=== PATIENT | male | born 1975 | race Caucasian/White ===

== ENCOUNTER 2016-07-07 04:36 | Emergency (ER) | payer MEDICAID ==
[2016-07-07 06:31] VITALS: BP 131/88
== END 2016-07-07 06:31 | disposition home or self-care (01) ==
LOC: ED 04:36
DX: S63.502A Unspecified sprain of left wrist, initial encounter (principal); S63.602A Unspecified sprain of left thumb, initial encounter; S41.112A Laceration without foreign body of left upper arm, initial encounter; V49.9XXA Car occupant (driver) (passenger) injured in unspecified traffic accident, initial encounter; Y93.89 Activity, other specified; Y99.8 Other external cause status; Y92.89 Other specified places as the place of occurrence of the external cause
CPT/HCPCS: 90715

== ENCOUNTER 2016-08-17 14:36 | Inpatient (IN) | payer MEDICAID ==
[~2016-08-17] VITALS: Ht 175.3 cm; Wt 131.6 kg
[2016-08-17 15:14] LABS: microscopic required? NO
[2016-08-17 15:23] LABS: PLATELET COUNT 282 x10^3mcL (130-400)
[2016-08-17 15:31] LABS: RED CELL DISTRIBUTION WIDTH 14.7 % (11.5-14.5)
[2016-08-17 15:35] LABS: urine erythrocyte NEGATIVE (NEGATIVE)
[2016-08-17 15:36] LABS: CARBON DIOXIDE 27.2 mmol/L (21-32); CHLORIDE SERUM 102 mmol/L (98-107); GFR1 > 60 mL/min; GLUCOSE SERUM 108 mg/dL (74-106); POTASSIUM SERUM 3.7 mmol/L (3.5-5.1); SODIUM SERUM 136 mmol/L (136-145)
[2016-08-17 15:46] LABS: ALKALINE PHOSPHATASE 89 U/L (46-116); ALT/SGPT 42 U/L (16-63); AST/SGOT 22 U/L (15-37); BILIRUBIN TOTAL 0.3 mg/dL (0.20-1.00); TOTAL PROTEIN, SERUM 7.6 g/dL (6.4-8.2)
[2016-08-17 15:50] LABS: ALBUMIN 3.3 g/dL (3.4-5.0)
[2016-08-17 16:02] LABS: BAND NEUTROPHIL 3 % (0-10); BASOPHIL 0 % (0-2); MONOCYTE 3 % (0-7); SEGMENTED NEUTROPHILS 88 % (37-75); rbc morphology (normal/abnorm) ABNORMAL (NORMAL)
[2016-08-17 16:13] LABS: CK-MB 0.5 ng/mL (0-3.6)
[2016-08-17] MEDS ORDERED: MULTI-VITAMINS1 TAB PO (17:35)
[2016-08-17] MEDS ORDERED: IBUPROFEN400 MG PO (17:36)
[2016-08-17 18:30] VITALS: BP 130/57
[2016-08-17 18:40] LABS: CHOLESTEROL/HDL RATIO 2.7; T3 TOTAL 0.96 ng/mL
[2016-08-17 18:47] LABS: FREE T4 0.81 ng/dL (0.76-1.46); T4(THYROXINE) 6.3 ug/dL (4.7-13.3)
[2016-08-17 21:26] VITALS: BP 120/67
[2016-08-18 00:43] VITALS: BP 120/67
[2016-08-18 05:25] VITALS: BP 110/50
[2016-08-18 06:21] LABS: CARBON DIOXIDE 25.3 mmol/L (21-32); CHLORIDE SERUM 111 mmol/L (98-107); CREATININE SERUM 0.7 mg/dL (0.7-1.3); GFR1 > 60 mL/min; GLUCOSE SERUM 107 mg/dL (74-106); MAGNESIUM 2.1 mg/dL (1.8-2.4); PHOSPHOROUS 3.4 mg/dL (2.5-4.9); SODIUM SERUM 146 mmol/L (136-145)
[2016-08-18 06:24] LABS: PLATELET COUNT 277 x10^3mcL (130-400)
[2016-08-18 07:49] LABS: RED CELL DISTRIBUTION WIDTH 14.8 % (11.5-14.5)
[2016-08-18 09:12] LABS: BAND NEUTROPHIL 5 % (0-10); BASOPHIL 0 % (0-2); MONOCYTE 2 % (0-7); SEGMENTED NEUTROPHILS 88 % (37-75)
[2016-08-18 09:15] LABS: PLATELET MORPHOLOGY PLATELETS NORMAL; rbc morphology (normal/abnorm) NORMAL (NORMAL)
[2016-08-18 09:58] VITALS: BP 123/47
[2016-08-18 14:44] VITALS: BP 119/40
[2016-08-18 18:00] VITALS: BP 106/63
[2016-08-18 21:57] VITALS: BP 108/55
[2016-08-19 00:07] LABS: AMPHETAMINE QUAL UR NONE DETECTED (NEG <=1000)
[2016-08-19 05:39] VITALS: BP 106/58
[2016-08-19 06:44] LABS: BASOPHIL % 0.3 % (0-2); PLATELET COUNT 259 x10^3mcL (130-400)
[2016-08-19 06:59] LABS: CALCIUM 8.3 mg/dL (8.5-10.1); CARBON DIOXIDE 24.8 mmol/L (21-32); CHLORIDE SERUM 110 mmol/L (98-107); CREATININE SERUM 0.8 mg/dL (0.7-1.3); GFR1 > 60 mL/min; GLUCOSE SERUM 89 mg/dL (74-106); MAGNESIUM 2.1 mg/dL (1.8-2.4); PHOSPHOROUS 3.7 mg/dL (2.5-4.9); POTASSIUM SERUM 4.3 mmol/L (3.5-5.1); SODIUM SERUM 144 mmol/L (136-145)
[2016-08-19 08:48] VITALS: BP 112/52
[2016-08-19 17:54] VITALS: BP 112/56
[2016-08-19 21:53] VITALS: BP 116/42
[2016-08-20 06:26] VITALS: BP 110/43
[2016-08-20 08:42] LABS: BASOPHIL % 0.3 % (0-2); PLATELET COUNT 304 x10^3mcL (130-400)
[2016-08-20 08:53] LABS: CALCIUM 8.6 mg/dL (8.5-10.1); CARBON DIOXIDE 25.5 mmol/L (21-32); CHLORIDE SERUM 107 mmol/L (98-107); CREATININE SERUM 0.9 mg/dL (0.7-1.3); GFR1 > 60 mL/min; GLUCOSE SERUM 96 mg/dL (74-106); MAGNESIUM 2.1 mg/dL (1.8-2.4); PHOSPHOROUS 4.7 mg/dL (2.5-4.9); SODIUM SERUM 142 mmol/L (136-145)
[2016-08-20 09:06] LABS: RED CELL DISTRIBUTION WIDTH 14.9 % (11.5-14.5)
[2016-08-20] MEDS ORDERED: CLINDAMYCIN HC300 MG PO (09:25)
[2016-08-20] MEDS ORDERED: LAC PO (09:25)
[2016-08-20] MEDS ORDERED: LEVAQUIN750 MG PO (09:25)
[2016-08-20] MEDS ORDERED: LOT1C TOP (09:30)
[2016-08-20 10:14] VITALS: BP 126/54
[2016-08-20 13:25] VITALS: BP 126/54
== END 2016-08-20 15:00 | disposition home or self-care (01) | DRG 720 ==
LOC: ED 14:36 → DU 17:27 → MU 08-18 14:41
PROVIDERS: Emergency Medicine; Family Medicine; ADMIT Family Medicine
DX: A41.9 Sepsis, unspecified organism (principal); N17.0 Acute kidney failure with tubular necrosis; E43 Unspecified severe protein-calorie malnutrition; L03.115 Cellulitis of right lower limb; B35.4 Tinea corporis; I10 Essential (primary) hypertension; D64.9 Anemia, unspecified; R65.20 Severe sepsis without septic shock; L03.116 Cellulitis of left lower limb; L85.3 Xerosis cutis; J30.2 Other seasonal allergic rhinitis; E66.01 Morbid (severe) obesity due to excess calories; Z68.41 Body mass index [BMI] 40.0-44.9, adult; Z87.442 Personal history of urinary calculi
CPT/HCPCS: 83880; 84439; 87491; 87591; J0696; J1956; J2405; J3490; J7030; Q0092